=== PATIENT | female | born 1990 | race Caucasian/White ===

== ENCOUNTER → 2018-06-02 | Outpatient (CLI) | payer OTHER | LOC: FIMAGING 07:29 | PROVIDERS: ATTEND Obstetrics & Gynecology | DX: O30.043 Twin pregnancy, dichorionic/diamniotic, third trimester (principal); O09.293 Supervision of pregnancy with other poor reproductive or obstetric history, third trimester; Z3A.31 31 weeks gestation of pregnancy ==

== ENCOUNTER 2018-06-15 09:19 | Day surgery (SDC) | payer OTHER ==
--- NOTE | 2018-06-15 10:42 | OBPROG ---
Labor Progress Note Assessment/Plan: Assessment: IUP at 33+ wks with Twin gestation routine monitoring Plan: reactive NSTs x2, cont twice weekly NSTs 06/15/18 10:38 Subjective/Intrapartum Course: 06/15/18 10:41 Pt feeling fine per RN report. Denies feeling ctxns. GFM x2 and no ROM, no bld - SVE Membranes: Intact - Contraction Pattern Assessment Current Contraction Pattern: Irregular (mild non-palpable) - FHR Assessment Twin A FHR (bpm): 130 FHR Pattern Variability: Moderate FHR Category: 1 (reactive NST, good accels, no decels.) Twin B FHR (bpm): 130 FHR Pattern Variability: Moderate FHR Category: 1 (reactive NST, good accels, no decels) - Procedures Non-surgical Procedures: Other (Specify) Oxytocin Orders Assessment - Pre-Induction/Augmentation Assessment Gestational Age: 33 week(s) and 5 day(s) ICD10 Worksheet Patient Problems: Problems Problem Status Onset Twin gestation in third trimester Acute - ICD10 Problem Qualifiers (1) Twin gestation in third trimester
== END 2018-06-15 10:27 | disposition home or self-care (01) ==
LOC: FOBOP 09:19
PROVIDERS: ATTEND Obstetrics & Gynecology
DX: O30.003 Twin pregnancy, unspecified number of placenta and unspecified number of amniotic sacs, third trimester (principal); Z3A.33 33 weeks gestation of pregnancy

== ENCOUNTER 2018-06-17 11:56 | Day surgery (SDC) | payer OTHER ==
[2018-06-17 12:19] LABS: PLATELET COUNT 223 10^3/uL (150-400)
--- NOTE | 2018-06-17 16:46 | GHP ---
DATE OF ADMISSION: 06/17/2018 INDICATIONS: Twin nonstress test with evaluation for preeclampsia. HISTORY OF PRESENT ILLNESS: Patient is a 27-year-old 1, para 0 who is at 34 weeks w ith di/di who presented today for a scheduled nonstress test. Patient has been feeling well overall; however, she does complain of bilateral lower extremity edema. She denies any headache or changes i n vision, any nausea or vomiting, or right upper quadrant pain. Patient's initial blood pressure on arrival was 120/90. She had a blood pressure that was 120s/70s following that and then had 2 elevate d blood pressures of 140s/90s when she got anxious about possible preeclampsia. [facility] labs were obtain ed, which were normal. Her white blood count is 9.3. Her hemoglobin is 13.4, hematocrit is 38.5, an d platelets are 223. Her AST is 20, ALT is 16, uric acid is 5.5, and creatinine is 0.5. Her urine P C ratio was 0.69. status for both NSTs were reassuring. PHYSICAL EXAM: GENERAL APPEARANCE: Alert and oriented x3. PSYCH: Appropriate affect. HEART: Reg ular, regular. LUNGS: Clear to auscultation bilaterally. ABDOMEN: Gravid, nondistended, nontender . EXTREMITIES: Reveal no calf tenderness or edema. She does have 1+ DTRs bilaterally as previously stated. Nonstress test was reactive x2. We had a discussion about indications for diagnosis of preeclampsia and management options. Preeclam psia precautions and kick counts were reviewed with the patient, as well as precautions. Darlene garcia will follow up on Friday for a nonstress test and repeat blood pressure check. She is supposed to call us if she develops any headache or changes in vision. She will also get a blood pressure for home to bring in on Friday to make sure that it is calibrated with our machines in the office. She is supposed to call if she has any questions or concerns. /[id number]/MODL
== END 2018-06-17 13:40 | disposition home or self-care (01) ==
LOC: FOBOP 11:56
PROVIDERS: ATTEND Obstetrics & Gynecology
DX: O14.93 Unspecified pre-eclampsia, third trimester (principal); O30.043 Twin pregnancy, dichorionic/diamniotic, third trimester; Z3A.34 34 weeks gestation of pregnancy

== ENCOUNTER 2018-06-19 10:44 | Day surgery (SDC) | payer OTHER | END 2018-06-19 11:50 | disposition home or self-care (01) | LOC: FOBOP 10:44 | PROVIDERS: ATTEND Obstetrics & Gynecology | DX: O30.009 Twin pregnancy, unspecified number of placenta and unspecified number of amniotic sacs, unspecified trimester (principal); Z3A.00 Weeks of gestation of pregnancy not specified ==

== ENCOUNTER 2018-06-22 11:06 | Day surgery (SDC) | payer OTHER ==
--- NOTE | 2018-06-22 11:11 | OBPROG ---
Labor Progress Note Assessment/Plan: Assessment: 27 y/o G 1 P0 @ 34 5/7 weeks reactive twin NST Plan: d/c home, continue 2X/ week NST and weekly office visits. 06/22/18 11:10 Subjective/Intrapartum Course: 06/22/18 11:09 Pt presents to L and D for a scheduled twin NST @ 345/7 weeks with complaints. - Contraction Pattern Assessment Current Contraction Pattern: Other (Specify) (irritability) - FHR Assessment Twin A FHR (bpm): 130 FHR Pattern Variability: Moderate FHR Category: 1 Twin B FHR (bpm): 140 FHR Pattern Variability: Moderate FHR Category: 1 Oxytocin Orders Assessment - Pre-Induction/Augmentation Assessment Gestational Age: 34 week(s) and 5 day(s) ICD10 Worksheet Patient Problems: Problems Problem Status Onset Twin gestation in third trimester Acute
== END 2018-06-22 11:20 | disposition home or self-care (01) ==
LOC: FOBOP 11:06
PROVIDERS: ATTEND Obstetrics & Gynecology
DX: O30.003 Twin pregnancy, unspecified number of placenta and unspecified number of amniotic sacs, third trimester (principal); Z3A.34 34 weeks gestation of pregnancy

== ENCOUNTER 2018-06-24 12:11 | Outpatient (CLI) | payer OTHER | END 2018-06-24 12:56 | disposition home or self-care (01) | LOC: FOBOP 12:11 | PROVIDERS: ATTEND Obstetrics & Gynecology | DX: O36.5920 Maternal care for other known or suspected poor fetal growth, second trimester, not applicable or unspecified (principal); O30.002 Twin pregnancy, unspecified number of placenta and unspecified number of amniotic sacs, second trimester; Z3A.00 Weeks of gestation of pregnancy not specified ==

== ENCOUNTER 2018-06-30 10:10 | Day surgery (SDC) | payer OTHER ==
[2018-06-30 11:52] LABS: PLATELET COUNT 202 10^3/uL (150-400)
--- NOTE | 2018-06-30 12:14 | OBPROG ---
Labor Progress Note Assessment/Plan: Assessment: IUP at 35w6d Twins routine monitoring borderline elevated B/P, elevated P:C ratio in past Plan: reactive NSTs, PIH labs done - CBC normal, P:C ratio better, pt d/c to go to [facility] scan 06/30/18 12:11 Subjective/Intrapartum Course: 06/30/18 12:13 Pt doing well. Denies HENDERSON or N/V, GFM x2. Anxious with B/P checks Objective: 06/30/18 11:35 06/30/18 11:35 Uric Acid 5.9 mg/dL (2.5-6.8) 06/30/18 11:35 Total Bilirubin 0.5 mg/dL (0.1-1.4) 06/30/18 11:35 Conjugated Bilirubin 0.1 mg/dL (0.0-0.5) 06/30/18 11:35 Unconjugated Bilirubin 0.4 mg/dL (0.0-1.1) 06/30/18 11:35 AST 23 IU/L (14-46) 06/30/18 11:35 ALT 16 IU/L (9-52) 06/30/18 11:35 Lactate Dehydrogenase 461 IU/L (313-618) 06/30/18 11:35 - Contraction Pattern Assessment Current Contraction Pattern: Irregular (random, non painful) - FHR Assessment Twin A FHR (bpm): 130 FHR Pattern Variability: Moderate FHR Category: 1 (reactive NST, accels, no decels) Twin B FHR (bpm): 130 FHR Pattern Variability: Moderate FHR Category: 1 (reactive NST, accels, no decels) Oxytocin Orders Assessment - Pre-Induction/Augmentation Assessment Gestational Age: 35 week(s) and 6 day(s) ICD10 Worksheet Patient Problems: Problems Problem Status Onset Twin gestation in third trimester Acute
== END 2018-06-30 12:19 | disposition home or self-care (01) ==
LOC: FOBOP 10:10 → UNDOADMOB 10:10 → FLD 10:10 → EDSTATUS 11:51 → FOBOP 12:19
PROVIDERS: ATTEND Obstetrics & Gynecology
DX: O28.9 Unspecified abnormal findings on antenatal screening of mother (principal); O30.003 Twin pregnancy, unspecified number of placenta and unspecified number of amniotic sacs, third trimester; Z3A.32 32 weeks gestation of pregnancy

== ENCOUNTER → 2018-06-30 | Outpatient (CLI) | payer OTHER | LOC: FIMAGING 12:23 | PROVIDERS: ATTEND Obstetrics & Gynecology | DX: O30.043 Twin pregnancy, dichorionic/diamniotic, third trimester (principal); O36.5930 Maternal care for other known or suspected poor fetal growth, third trimester, not applicable or unspecified; Z3A.35 35 weeks gestation of pregnancy ==

== ENCOUNTER 2018-07-03 10:23 | Day surgery (SDC) | payer OTHER ==
--- NOTE | 2018-07-03 14:13 | SOAPPROG ---
SOAP Progress Note Assessment/Plan: Assessment: 27 yo G1 with di/di twins at 36w2d with reactive NST, Cat 1 A - 140 reactive, Cat 1, mod variability, + accels, no decels B- 135 reactive, Cat 1, mod variability, + accels, no decels Plan: NST review only. Pt dced home, to FU with reg scheduled monitoring per twin protocol. Nati Max MD, FACOG [facility] 07/03/18 14:06 ICD10 Worksheet Patient Problems: Problems Problem Status Onset Twin gestation in third trimester Acute
== END 2018-07-03 11:00 | disposition home or self-care (01) ==
LOC: FOBOP 10:23
PROVIDERS: ATTEND Hospitalist
DX: Z03.79 Encounter for other suspected maternal and fetal conditions ruled out (principal); O30.043 Twin pregnancy, dichorionic/diamniotic, third trimester; Z3A.36 36 weeks gestation of pregnancy

== ENCOUNTER → 2018-07-06 | Outpatient (CLI) | payer OTHER | LOC: FIMAGING 09:57 | PROVIDERS: ATTEND Obstetrics & Gynecology | DX: O30.043 Twin pregnancy, dichorionic/diamniotic, third trimester (principal); O36.5930 Maternal care for other known or suspected poor fetal growth, third trimester, not applicable or unspecified; Z3A.36 36 weeks gestation of pregnancy ==

== ENCOUNTER → 2018-07-07 | Outpatient (CLI) | payer OTHER ==
--- NOTE | 2018-07-07 16:24 | OBPROG ---
Labor Progress Note Assessment/Plan: Assessment: Di-Di TIUP @ 36 6/7 with GHTN here today for NST Plan: NST reactive x 2, Cat I strips A - 140 bpm, +accels, no decels, mod variability B - 135 bpm, +accels, no decels, mod variability BP was 142/75 Pt is asymptomatic at this time Pt is scheduled for IOL 07/09/18 07/07/18 16:20 Oxytocin Orders Assessment - Pre-Induction/Augmentation Assessment Gestational Age: 36 week(s) and 6 day(s) ICD10 Worksheet Patient Problems: Problems Problem Status Onset Twin gestation in third trimester Acute
== END ==
LOC: FOBOP 13:36
PROVIDERS: ATTEND Obstetrics & Gynecology
DX: O30.043 Twin pregnancy, dichorionic/diamniotic, third trimester (principal); Z3A.36 36 weeks gestation of pregnancy

== ENCOUNTER 2018-07-09 06:25 | Inpatient (IN) | payer OTHER ==
[2018-07-09] MEDS ORDERED: LIDOCAINE 1% 300 MG/30 ML SDV SC PRN (06:50)
[2018-07-09] MEDS ORDERED: LR 500 ML IV PRN (06:50)
[2018-07-09] MEDS ORDERED: LR 1,000 ML IV PRN (06:50)
[2018-07-09] MEDS ORDERED: EPSOM SALT 454 GM TP PRN (06:50)
[2018-07-09] MEDS ORDERED: OXYTOCIN/RINGERS LACTATE 1,000 ML IV PRN (06:50)
[2018-07-09] MEDS ORDERED: MISOPROSTOL 200 MCG TAB PR PRN (06:50)
[2018-07-09] MEDS ORDERED: OLIVE OIL 118 ML BTL MISC PRN (06:50)
[2018-07-09] MEDS ORDERED: PENICILLIN G POTASSIUM 5,000,000 UNIT in D5W 150 ML IV ONE (06:50)
[2018-07-09] MEDS ORDERED: IBUPROFEN 600 MG TAB PO PRN (06:50)
[2018-07-09] MEDS ORDERED: OXYTOCIN/RINGERS LACTATE 500 ML IV SCH (07:00)
[2018-07-09 07:28] LABS: PLATELET COUNT 204 10^3/uL (150-400)
[2018-07-09] MEDS: PENICILLIN G POTASSIUM 2,500,000 UNIT in D5W 150 ML IV SCH ×3 (09:35→15:46)
--- NOTE | 2018-07-09 09:44 | GHP ---
DATE OF ADMISSION: 07/09/2018 ADMISSION SUMMARY: Patient is a 27-year-old, G1, P0 with a twin at 37 weeks gestation with an estimated due date of 07/29/2018, based on an early ultrasound with a history of irregular period s. Patient is being admitted for induction of labor with recent ultrasound showing IUGR of both twin s at less than the 3rd percentile with elevated Dopplers of twin B. The last ultrasound reveals norm al fluid with both twins. The last weight estimates on June 30, was in the 4.5 pound range. Both twins are in the cephalic presentations. Upon presentation this morning, the patient is feeling cram ping from the Sandoval catheter from last night and contractions are slowly building on low-dose Pitocin at this time. The patient reports she did not sleep well through the night with mild cramping at ti mes. She is excited, but anxious for this morning. She is having good movement x2. No leakag e of fluid and no bleeding. Exam at the time of Sandoval placement yesterday showed the cervix was 1 cm dilated, 90% effaced, at -2 station. CARE: The patient has been with [facility] since early 1st trimester. The patie nt had a history of irregular cycles and was using a course of Clomid to help with conception. The p atient has had close surveillance throughout the whole with serial ultrasounds with materna l specialist. Twin B has had signs of severe renal pelvis dilation up to 12 mm. It was felt i t was unlikely to resolve, however, on more recent ultrasounds the pyelectasis has resolved. The twi n growths have been very concordant, but on most recent ultrasound on June 30, they were down to th e 2nd and 3rd percentile of size. There have been periodic elevated Dopplers and most recently twin B had 1 elevated Doppler. The patient has been mildly anemic through the and been on iron. She also had a low-lying placenta early in and this resolved by 28 weeks. The patient bliss d an elevated 1-hour Glucola with a normal 3 hour GTT. The patient has periodically had some mildly elevated blood pressures in the later 3rd trimester, and has had PIH lab evaluation which has always been normal. A urine P to C ratio showed an estimated 24 hour proteinuria of 894 mg at 34 weeks gest ation. Repeat at 36 weeks showed 740 mg estimate. The patient does not report any headaches or naus ea or vomiting. No right upper quadrant pains or scotomata. The patient has minimal edema. LABS: Include maternal blood type A negative with negative antibody screen. She received R hoGAM on 05/06/2018. RPR nonreactive. Rubella immune. Hepatitis B surface antigen negative. HIV n egative. Cystic fibrosis, SMA, fragile X all negative. Initial hematocrit was 34%, and the patient has been on iron through the . The hematocrit did improve somewhat to 35% in 3rd trimester. Urine drug screen initially in was negative. Urinalysis and culture negative. Pap smear normal. Gonorrhea and chlamydia negative. Verified genetic testing was negative. Varicella is imm une. Toxo titers were negative. The patient did have an elevated 1-hour Glucola with a normal 3 denise r GTT. GBS culture was positive. PAST MEDICAL HISTORY: History of irregular menstrual cycles, managed with hormone control in t he past. The patient trying to get for the last 10 months and conceived with Clomid. PAST SURGICAL HISTORY: Odontectomy. ALLERGIES: No known drug allergies. CURRENT MEDICATIONS: vitamins, iron. SOCIAL HISTORY: The patient is , lives with her partner Davin. The patient is a nonsmoker. N o alcohol use and no drug use. PHYSICAL EXAMINATION: GENERAL: Upon admission, the patient is a well-developed, well-nourished, whi te female in minimal discomfort with contractions. The patient is excited and slightly anxious about the labor today. VITAL SIGNS: Blood pressures in the 130s to low 140s with diastolics 80s to low 9 0s. The patient is afebrile. See nursing documentation for full details. LUNGS: Clear to ausculta tion bilaterally. CARDIOVASCULAR: Regular rate and rhythm. ABDOMEN: Reveals gravid uterus. [facility] monitoring shows contractions now between 3 and 4 minutes apart on low-dose Pitocin. heart ton e monitoring reveals category 1 tracing with twin A with category 2 tracing with twin B with only walter y occasional small transient variables. Good variability and good accelerations. Reactive NSTs for both initially. PELVIC: Exam is not performed at this time. EXTREMITIES: Nontender and minimal ed barbie. ASSESSMENT: Intrauterine at 37 weeks with di/di twins. Evidence of IUGR with both twins n ow at the 2nd and 3rd percentiles estimated approximately 4.5 pounds each. Good concordance. Slight ly elevated Doppler with twin B. History of renal pyelectasis, severe at one point with twin B but f elt to be resolved. Low-lying placenta which resolved in 3rd trimester. Slightly elevated blood pre ssures with evidence of proteinuria. Positive GBS and receiving penicillin antibiotics. Will plan A ROM after the 2nd dose. Induction with Pitocin at this point, and the patient will request epidural when desired. Maternal blood type A negative, and the patient will receive RhoGAM after delivery if indicated. /[id number]/MODL
[2018-07-09] MEDS ORDERED: PHENYLEPHRINE HCL 100 MCG/ML SYR IVP PRN (11:05)
--- NOTE | 2018-07-09 11:07 | PREANESOB ---
Obstetric Pre-Anesthesia Info - General Info Proposed Procedure: SEN : 1 Para: 0 SKIP: 07/29/18 Gestational Age: 37 week(s) and 1 day(s) - Info Status: Twins FHR Pattern: Reassuring - Labor Status Indications for Labor Analgesia: Induction of Labor, Pain Control Anesthesia Allergies/Adverse Reactions: Allergy/AdvReac Type Severity Reaction Status Date / Time No Known Allergies Allergy Verified 07/09/18 07:07 Home Medications: Medication Instructions Recorded Ferrous Sulfate [Slow Fe] 1 tab PO DAILY 06/17/18 Vit27&Calcium/Iron/FA 1 each PO DAILY 06/17/18 [ Rx 1 Tablet (RX)] Visit Medications: Generic Name Dose Route Start Last Admin Trade Name Freq PRN Reason Stop Dose Admin Lactated Ringer's 1,000 mls @ 0 mls/hr 07/09/18 06:50 Lr IV 07/10/18 06:49 PRN PRN SEE PROTOCOL CONDITIONS Protocol Per Protocol Lactated Ringer's 500 mls @ 500 mls/hr 07/09/18 06:50 Lr IV 07/10/18 06:50 PRN PRN Maternal Hypotension Oxytocin/Lactated Ringer's 1,000 mls @ 125 mls/hr 07/09/18 06:50 Pitocin 20 Units/Lr (Premix) IV PRN PRN Post bleeding Oxytocin/Lactated Ringer's 500 mls @ 0 mls/hr 07/09/18 07:00 07/09/18 07:52 Pitocin 30 Units/Lr (Premix) IV 01/05/19 06:59 500 mls CONT HITESH Administration Protocol Per Protocol Penicillin G Potassium 2,500, 155 mls @ 155 mls/hr 07/09/18 07:00 07/09/18 09 :35 000 unit/ Dextrose IV 08/08/18 06:59 Not Given Q4H HITESH Protocol Ibuprofen 600 mg 07/09/18 06:50 Motrin PO ONCE PRN post , pain Lidocaine HCl 300 mg 07/09/18 06:50 Lidocaine Hcl 1% SC 01/05/19 06:49 ONCE PRN episiotomy Magnesium Sulfate 454 gm 07/09/18 06:50 Epsom Salt TP 01/05/19 06:49 Q1H PRN perineal discomfort Misoprostol 800 - 1,000 mcg 07/09/18 06:50 Cytotec DE ONCE PRN Vaginal Atony/Bleeding [place] Oil 118 ml 07/09/18 06:50 Sweet Oil MISC 01/05/19 06:49 ONCE PRN perineal massage Discontinued Medications Generic Name Dose Route Start Last Admin Trade Name Raiza PRN Reason Stop Dose Admin Penicillin G Potassium 5,000, 160 mls @ 160 mls/hr 07/09/18 06:50 07/09/18 07 :45 000 unit/ Dextrose IV 07/09/18 07:49 160 mls ONCE ONE Administration Protocol - Anesthesia History Response to Local Anesthetics: Normal Anesthesia & Operative History: No Prior Problems Family Anesthesia History: Negative - Vital Signs Height/Weight (Nursing): Height 177.8 cm Weight 86.183 kg - Focused Exam Neck exam: FROM Mallampati Score: Class 2 Mouth exam: normal dental/mouth exam Pulmonary: no respiratory distress, no rales or rhonchi, clear to auscultation Cardiovascular: regular rate and rhythym, no murmur, rub, or gallop Labs: 07/09/18 06:45 07/09/18 07:00 Patient ABO/Rh A NEGATIVE 07/09/18 06:45 Uric Acid 6.8 mg/dL (2.5-6.8) 07/09/18 07:00 Total Bilirubin 0.5 mg/dL (0.1-1.4) 07/09/18 07:00 Conjugated Bilirubin 0.2 mg/dL (0.0-0.5) 07/09/18 07:00 Unconjugated Bilirubin 0.3 mg/dL (0.0-1.1) 07/09/18 07:00 AST 22 IU/L (14-46) 07/09/18 07:00 ALT 20 IU/L (9-52) 07/09/18 07:00 Lactate Dehydrogenase 491 IU/L (313-618) 07/09/18 07:00
[2018-07-09] MEDS ORDERED: fentaNYL 2MCG/ML/BUP 0.1% RTU 100 ML BAG EP ONE (11:08)
[2018-07-09] MEDS ORDERED: PHENYLEPHRINE HCL 100 MCG/ML SYR ONE (11:08)
[2018-07-09] MEDS ORDERED: fentaNYL 2MCG/ML/BUP 0.1% RTU 100 ML EP SCH (11:30)
[2018-07-09] MEDS ORDERED: LR 500 ML IV SCH (11:30)
[2018-07-09] MEDS ORDERED: OXYTOCIN 10 UNIT/ML VIAL ONE (13:44)
[2018-07-09] MEDS ORDERED: AMMONIA AROMATIC 1 EACH AMP IH ONE (13:44)
[2018-07-09] MEDS ORDERED: TERBUTALINE SULFATE 1 MG/ML VIAL ONE (13:44)
--- NOTE | 2018-07-09 15:23 | OBPROG ---
Labor Progress Note Assessment/Plan: Assessment: LATE NOTE FROM APPROX 13:45 IUP at 37 wks with di-di twins, both IUGR for induction pitocin, SEN with SROM approx 10:40 with clear fluid +GBS s/p 2 doses PCN Plan: complete and moving pt to OR for pushing 07/09/18 15:19 Subjective/Intrapartum Course: 07/09/18 15:23 doing fine but feeling pressure with ctxns, has hit SEN bolus. 10/100/+1 at 13: 31, clear fluid Objective: 07/09/18 06:45 07/09/18 07:00 Patient ABO/Rh A NEGATIVE 07/09/18 06:45 Uric Acid 6.8 mg/dL (2.5-6.8) 07/09/18 07:00 Total Bilirubin 0.5 mg/dL (0.1-1.4) 07/09/18 07:00 Conjugated Bilirubin 0.2 mg/dL (0.0-0.5) 07/09/18 07:00 Unconjugated Bilirubin 0.3 mg/dL (0.0-1.1) 07/09/18 07:00 AST 22 IU/L (14-46) 07/09/18 07:00 ALT 20 IU/L (9-52) 07/09/18 07:00 Lactate Dehydrogenase 491 IU/L (313-618) 07/09/18 07:00 - SVE Dilation (cm): 10 Effacement (%): 100 Station: +1 Membranes: SROM Amniotic Fluid Color: Clear Dilation Complete Date: 07/09/18 Dilation Complete Time: 13:31 - Contraction Pattern Assessment Current Contraction Pattern: Regular (q 2-3 min on pitocin on 12 mu/min) - FHR Assessment Twin A FHR (bpm): 130 FHR Pattern Variability: Moderate FHR Category: 1 Twin B FHR (bpm): 130 FHR Pattern Variability: Moderate FHR Category: 2 (small variables) Oxytocin Orders Assessment - Pre-Induction/Augmentation Assessment Gestational Age: 37 week(s) and 1 day(s) ICD10 Worksheet Patient Problems: Problems Problem Status Onset Twin delivered vaginally Acute (spontaneous vaginal delivery) Acute Twin gestation in third trimester Acute
--- NOTE | 2018-07-09 15:32 | OBDEL ---
Info Type: Vaginal Presentation at Delivery: Vertex L&D Analgesia/Anesthesia Type: Epidural GBS+: Yes (PCN doses x2) Intrapartum Medications: Generic Name Dose Route Start Last Admin Trade Name Freq PRN Reason Stop Dose Admin Oxytocin/Lactated Ringer's 500 mls @ 0 mls/hr 07/09/18 07:00 07/09/18 07:52 Pitocin 30 Units/Lr (Premix) IV 01/05/19 06:59 500 mls CONT HITESH Administration Protocol Per Protocol Discontinued Medications Generic Name Dose Route Start Last Admin Trade Name Freq PRN Reason Stop Dose Admin Penicillin G Potassium 5,000, 160 mls @ 160 mls/hr 07/09/18 06:50 07/09/18 07 :45 000 unit/ Dextrose IV 07/09/18 07:49 160 mls ONCE ONE Administration Protocol Penicillin G Potassium 2,500, 155 mls @ 155 mls/hr 07/09/18 07:00 07/09/18 11 :58 000 unit/ Dextrose IV 08/08/18 06:59 155 mls Q4H HITESH Administration Protocol - Infant Care Provider Hosiery Repairer/RN HEMODIALYSIS: Cherie Martinez - Hospital Course Intrapartum: 07/09/18 15:23 doing fine but feeling pressure with ctxns, has hit SEN bolus. 10/100/+1 at 13: 31, clear fluid Indications for Delivery: Growth Restriction w/Abnormal Doppler studies Vaginal Delivery - Delivery Provider Delivery Physician/CNM: Michelle Gutierrez - Labor and Delivery Onset of Contractions Date: 07/09/18 Onset of Contractions Time: 10:50 Onset of Contractions Type: Induced Rupture of Membranes Date: 07/09/18 Rupture of Membranes Time: 10:40 Rupture of Membranes Type: Spontaneous Amniotic Fluid Color: Clear Dilation Complete Date: 07/09/18 Dilation Complete Time: 13:31 Placenta Delivery Date: 07/09/18 Placenta Delivery Time: 14:47 Total Hours of Labor: 3 Laceration: 1st Degree (perineal lac) Repair: Other (Specify) (none needed) Vaginal Sponge Count Correct: Yes Vaginal Needle Count Correct: Yes Vaginal Sweep Performed: Yes EBL: 350 Delivery Events: Other (Specify) (both del with nuchal hands) - Medications Labor Augmentation/Induction Methods Used: Pitocin Labor Augmentation/Induction Indication: IUGR (x2) Data SKIP: 07/29/18 Gestational Age: 37 week(s) and 1 day(s) Twin A Delivery Date: 07/09/18 Delivery Time: 14:35 Sex of Infant: Male (Shahbaz Suero) [place] Weight (gm): 2108 g (4#10) Score (1 Min): 8 Score (5 Min): 9 Twin B Delivery Date: 07/09/18 Delivery Time: 14:41 Sex of : Male (Danny) [place] Weight (gm): 2098 g (4 #10) Score (1 Min): 8 Score (5 Min): 9 ICD10 Worksheet Patient Problems: Problems Problem Status Onset (spontaneous vaginal delivery) Acute Twin delivered vaginally Acute Twin gestation in third trimester Acute
[2018-07-09] MEDS: IBUPROFEN 600 MG TAB PO PRN (22:16)
[2018-07-10] MEDS: IBUPROFEN 600 MG TAB PO PRN ×3 (06:19→18:53)
[2018-07-10] MEDS: DOCUSATE SODIUM 100 MG CAP PO PRN (09:15)
[2018-07-10] MEDS: ACETAMINOPHEN 325 MG TAB PO PRN ×2 (11:21→17:26)
--- NOTE | 2018-07-10 12:05 | POSTANESTH ---
Post Anesthetic Evaluation Cardiovascular Status: Normal, Stable Respiratory Status: Normal, Stable Level of Consciousness/Mental Status: Can Participate in Eval, Alert and Oriented Pain Control: Adequate, Prn Tx Ordered Nausea/Vomiting Control: Adequate, Prn Tx Ordered Complications Possibly Related to Anesthesia: None Noted Notes: Pt ambulating. No HENDERSON or back pain. No nausea or other problems overnight. Epidural insertion site has no point tenderness, erythema, or exudate.
--- NOTE | 2018-07-10 13:05 | OBPP ---
Progress Note Assessment/Plan: Assessment: PPD1 s/p of Aggie twins at 37wks - for IUGR and dx of mild pre-eclampsia with mild range BP's and elevated proteinuria. - BPs now within normal range, no concerning sx. BP's not significantly elevated during labor. - Routine cares - likely home tomorrow vs Friday. - Rh neg - screen and RhoGam PRN. - Rubella Immune. JM Subjective/ Course: Millie is doing great this AM - minimal pain meds, BF hectic but going well, no acute issues. Objective: 07/10/18 06:05 07/09/18 07:00 Patient ABO/Rh A NEGATIVE 07/09/18 06:45 Uric Acid 6.8 mg/dL (2.5-6.8) 07/09/18 07:00 Total Bilirubin 0.5 mg/dL (0.1-1.4) 07/09/18 07:00 Conjugated Bilirubin 0.2 mg/dL (0.0-0.5) 07/09/18 07:00 Unconjugated Bilirubin 0.3 mg/dL (0.0-1.1) 07/09/18 07:00 AST 22 IU/L (14-46) 07/09/18 07:00 ALT 20 IU/L (9-52) 07/09/18 07:00 Lactate Dehydrogenase 491 IU/L (313-618) 07/09/18 07:00 Temp Pulse Resp BP Pulse Ox 36.9 C 72 17 121/70 H 97 07/10/18 08:00 07/10/18 08:00 07/10/18 08:00 07/10/18 08:00 07/10/18 08:00 Uterine Position/Fundal Height: At Umbilicus Uterine Tone: Firm
[2018-07-11] MEDS: ACETAMINOPHEN 325 MG TAB PO PRN ×3 (00:17→13:32)
[2018-07-11] MEDS: DOCUSATE SODIUM 100 MG CAP PO PRN ×2 (00:17→10:53)
[2018-07-11] MEDS: IBUPROFEN 600 MG TAB PO PRN ×2 (04:37→10:53)
[2018-07-11 11:03] VITALS: BP 124/76
--- NOTE | 2018-07-11 11:25 | OBPP ---
Progress Note Assessment/Plan: Assessment: ppd# 2 s/p of twins uncomplicated post course breast feeding a neg / both babies are rh neg rubella immune discharge to [facility] Plan: 07/11/18 11:22 Subjective/ Course: Millie is doing great this AM - minimal pain meds, BF hectic but going well, no acute issues. 07/11/18 11:24 patient is doing well. pain is well controlled. babies are not discharged yet so mom will be discharged to [facility] status. working on breast feeding. normal lochia. denies headache and changes in vision. questions answered. Objective: 07/10/18 06:05 07/09/18 07:00 Patient ABO/Rh A NEGATIVE 07/09/18 06:45 Uric Acid 6.8 mg/dL (2.5-6.8) 07/09/18 07:00 Total Bilirubin 0.5 mg/dL (0.1-1.4) 07/09/18 07:00 Conjugated Bilirubin 0.2 mg/dL (0.0-0.5) 07/09/18 07:00 Unconjugated Bilirubin 0.3 mg/dL (0.0-1.1) 07/09/18 07:00 AST 22 IU/L (14-46) 07/09/18 07:00 ALT 20 IU/L (9-52) 07/09/18 07:00 Lactate Dehydrogenase 491 IU/L (313-618) 07/09/18 07:00 Temp Pulse Resp BP Pulse Ox 36.1 C 78 16 124/76 H 96 07/11/18 08:00 07/11/18 08:00 07/11/18 08:00 07/11/18 08:00 07/10/18 20:00 Physical Exam - Physical Exam Neck: non-tender, full range of motion, supple Respiratory: chest non-tender, lungs clear, normal breath sounds Cardiac/Chest: normal peripheral pulses, regular rate, rhythm Abdomen: normal bowel sounds, non-tender, other (fundus firm and non tender) Extremities: normal range of motion, non-tender, normal inspection, normal capillary refill Skin: normal color, warm/dry Neuro/Psych: no motor/sensory deficits, alert, normal mood/affect, oriented x 3
--- NOTE | 2018-07-11 11:26 | OBGCSDC ---
General Delivery Information - General Info : 1 Para: 1 Abortions: 0 Type: Vaginal L&D Analgesia/Anesthesia Type: Epidural Admission Date: 07/09/18 Labs: Patient ABO/Rh A NEGATIVE 07/09/18 06:45 Hct 32.8 % (38.0-47.0) L 07/10/18 06:05 - Hospital Course Intrapartum: 07/09/18 15:23 doing fine but feeling pressure with ctxns, has hit SEN bolus. 10/100/+1 at 13: 31, clear fluid : Millie is doing great this AM - minimal pain meds, BF hectic but going well, no acute issues. 07/11/18 11:24 patient is doing well. pain is well controlled. babies are not discharged yet so mom will be discharged to [facility] status. working on breast feeding. normal lochia. denies headache and changes in vision. questions answered. Vaginal - Delivery Provider Delivery Physician/CNM: Michelle Gutierrez - Diagnosis Labor: Induced Rupture of Membranes Type: Spontaneous Amniotic Fluid Color: Clear Laceration: 1st Degree (perineal lac) Repair: Other (Specify) (none needed) Delivery Events: Other (Specify) (both del with nuchal hands) - Delivery EBL: 350 Data SKIP: 07/29/18 Gestational Age: 37 week(s) and 3 day(s) Twin A Delivery Date: 07/09/18 Delivery Time: 14:35 Sex of Infant: Male [place] Weight (gm): 2108 g Score (1 Min): 8 Score (5 Min): 9 Twin B Delivery Date: 07/09/18 Delivery Time: 14:41 Sex of : Male Weight (gm): 2098 g Score (1 Min): 8 Score (5 Min): 9 Discharge Information - Discharge Information Instruction/Follow Up: Two Weeks (in three to four weeks for mood check with [facility] at our office), Six Weeks (post visit)
== END 2018-07-11 16:00 | disposition home or self-care (01) | DRG 807 ==
LOC: FLD 06:25 → FOB 17:35
PROVIDERS: ADMIT Obstetrics & Gynecology; ATTEND Obstetrics & Gynecology
PROC: 10E0XZZ Delivery of Products of Conception, External Approach (ICD-10-PCS; principal; 2018-07-09)
PROC: 3E033VJ Introduction of Other Hormone into Peripheral Vein, Percutaneous Approach (ICD-10-PCS; principal; 2018-07-09)
DX: O30.043 Twin pregnancy, dichorionic/diamniotic, third trimester (principal); O36.5931 Maternal care for other known or suspected poor fetal growth, third trimester, fetus 1; O36.5932 Maternal care for other known or suspected poor fetal growth, third trimester, fetus 2; O70.0 First degree perineal laceration during delivery; O99.820 Streptococcus B carrier state complicating pregnancy; Z3A.37 37 weeks gestation of pregnancy; Z37.2 Twins, both liveborn
CPT/HCPCS: J2370; J2540; J2590; J3105